=== PATIENT | female | born 2005 | race Asian ===

== ENCOUNTER → 2024-04-14 13:42 | Outpatient (CLI) | payer OTHER, SELFPAY ==
--- NOTE | 2024-04-14 13:47 | DI.US.S_ITS ---
PROCEDURE: US PELVIC COMPLETE INDICATIONS: Excessive and frequent menstruation TECHNIQUE: Real-time scanning was performed of the pelvic organs, with image documentation. Additional endovaginal scanning was necessary due to incomplete visualization of the adnexal and endometrial structures by transabdominal scanning. COMPARISON: None. FINDINGS: Uterus: Uterus is anteverted and normal in size at 7.0 x 2.6 x 4.4 cm. The myometrium is homogeneous. The endometrium measures 6.6 mm combined thickness. Ovaries: The right ovary measures 3.4 x 1.7 x 1.4 cm, with a calculated ovarian volume of 4.2 cc. A dominant follicle measures up to 1.2 cm. The left ovary measures 3.0 x 2.8 x 1.4 cm, with a calculated ovarian volume of 6.2 cc. The ovaries have a normal sonographic appearance. Less than 12 follicles can be seen in each ovary. No adnexal masses are seen. Other: No pathologic free abdominal or pelvic fluid. IMPRESSION: Pelvic ultrasound is within normal limits. Approved by: Greyson Delaney M.D. on 04/14/2024 at 19:48
== END ==
PROVIDERS: Referring Provider Nurse Practitioner; Visit Provider Nurse Practitioner
DX: N92.0 Excessive and frequent menstruation with regular cycle (principal)
CPT/HCPCS: 76830; 76856